=== PATIENT | female | born 1965 | race American Indian/Alaskan Native ===

== ENCOUNTER 2019-11-25 09:53 | Day surgery (SDC) | payer OTHER ==
[2019-11-25] MEDS ORDERED: SODIUM CHLORIDE 0.9% 1000 ML 1,000 ML IV SCH (10:30)
--- NOTE | 2019-11-25 10:36 | Anesthesia Day of Surgery ---
Anesthesia Day of Surgery - Day of Surgery Patient Examined: Yes Patient H&P Reviewed: Yes Patient is NPO: Yes
--- NOTE | 2019-11-25 10:37 | Anesthesia Consultation ---
Anesthesia Consult and Med Hx Date of service: 11/25/19 - Airway Anesthetic Teeth Evaluation: Crowns ROM Head & Neck: Adequate Mental/Hyoid Distance: Adequate Mallampati Class: Class II Intubation Access Assessment: Probably Good - Pre-Operative Health Status ASA Pre-Surgery Classification: ASA2 Proposed Anesthetic Plan: MAC - Pulmonary Hx Asthma: No (+2FS) - Cardiovascular System Hx Hypertension: Yes - Gastrointestinal Hx Gastroesophageal Reflux Disease: Yes - Endocrine Hx Liver Disease: Yes (Fatty liver) - Hematic Hx Sickle Cell Disease: No - Other Systems Hx Obesity: Yes
[2019-11-25] MEDS ORDERED: LIDOCAINE MPF (2%) 20 MG/1 ML VIAL 5 ML ONE (11:08)
[2019-11-25] MEDS ORDERED: propofoL 200 MG/20 ML VIAL IV ONE ×2 (11:08)
--- NOTE | 2019-11-25 11:34 | Short Stay Summary ---
Short Stay Documentation Date of service: 11/25/19 - History H&P: obtained from office - Allergies and Medications Current Medications: Allergies shrimp Allergy (Verified 11/25/19 10:41) Nausea Home Medications Medication Instructions Recorded Confirmed Last Taken Type Hydroxychloroquine [Plaquenil] 200 mg PO QDAY 11/25/19 11/25/19 11/23/19 History 200 mg hydroCHLOROthiazide [HCTZ] 25 mg PO QDAY 11/25/19 11/25/19 11/23/19 History 25 mg Active Medications Sodium Chloride (Nacl 0.9% 1000 Ml) 1,000 mls @ 50 mls/hr IV DIRECT IKE - Brief post op/procedure progress note Date of procedure: 11/25/19 Findings: see dictation Estimated blood loss: none Pathology: list (rectal polyp) Specimen disposition: to lab Condition: stable - Disposition Condition at discharge: Good Disposition: DC-01 TO HOME OR SELFCARE - Discharge Diagnoses (1) History of colon polyps Status: Acute Short Stay Discharge Plan Activity: other (no driving for 24 hours.) Weight Bearing Status: Full Weight Bearing Diet: regular Follow up with: IVÁN SAHU MD [Other] - 7 Days
--- NOTE | 2019-11-25 11:37 | Operative Report ---
Operative Report Operative Report: Date of procedure: 11/25/2019 Preprocedure diagnosis: History of colon polyps, last study 10 years ago. Post procedure diagnosis: 8 mm pedunculated rectal polyp, left colon diverticulosis. Procedure: Colonoscopy to the cecum with hot snare polypectomy. Endoscopist: Dr. Burciaga Anesthesia: Monitored anesthesia care per anesthesia department Estimated blood loss: 0 Medications: Monitored anesthesia care. See separate report by anesthesia for details. After careful discussion of the nature and purpose of the procedure as well as details of the technique risks benefits and alternatives the patient gave consent. Please see recent history and physical from the office. The patient was placed in the left lateral decubitus position and medicated per anesthesia. A rectal exam was performed sphincter tone was normal there were no masses palpable. The avocarrotn 570 scope was passed transanally and advanced under continuous direct vision without difficulty to the cecum. The colon was well prepared. The cecum was normal. The ascending colon was normal and on forward and retroflexed views. The transverse colon was normal. There were scattered diverticula in the distal descending colon and sigmoid colon. There was an 8 mm pedunculated polyp in the proximal rectum. The polyp was removed completely with a hot snare and retrieved by suction. The rectum was otherwise normal on forward and retroflexed views. The procedure was well-tolerated overall and the patient was observed in recovery. Conclusions: 8 mm pedunculated rectal polyp. Mild sigmoid and descending diverticulosis. Plan: Await pathology. Repeat colonoscopy in 5 years. Signed electronically: Richard Burciaga M.D.
--- NOTE | 2019-11-25 13:56 | Post Anesthesia Evaluation ---
- Post Anesthesia Evaluation Patient Participated: Yes Airway Patent: Yes Stable Respiratory Function: Yes Nausea/Vomiting: No Temp > 96.8F: Yes Pain Manageable: Yes Adequeate Hydration: Yes Anesthesia Complications: No Block Receding Appropriately: Not Applicable Patient on Ventilator: No
[2019-11-25 16:38] VITALS: BP 126/68
== END 2019-11-25 09:54 | disposition home or self-care (01) ==
LOC: GIO 09:53
PROVIDERS: ATTEND Internal Medicine Gastroenterology
DX: Z12.11 Encounter for screening for malignant neoplasm of colon (principal); K62.1 Rectal polyp; K57.30 Diverticulosis of large intestine without perforation or abscess without bleeding; I10 Essential (primary) hypertension; J45.909 Unspecified asthma, uncomplicated; K21.9 Gastro-esophageal reflux disease without esophagitis; E66.9 Obesity, unspecified; Z79.899 Other long term (current) drug therapy; Z86.010 Personal history of colon polyps; Z90.710 Acquired absence of both cervix and uterus; Z68.39 Body mass index [BMI] 39.0-39.9, adult; Z88.8 Allergy status to other drugs, medicaments and biological substances
CPT/HCPCS: 45385; 88305; J2704; J7030